=== PATIENT | male | born 1960 | race Caucasian/White ===

== ENCOUNTER 2018-01-29 21:05 | Emergency (ER) | payer MEDICAID ==
[~2018-01-29] VITALS: Ht 167.6 cm; Wt 64.0 kg
[2018-01-29] MEDS ORDERED: SODIUM CHLORIDE 0.9% 1,000 ML IV ONE ×2 (22:32→22:45)
[2018-01-29] MEDS ORDERED: METFORMIN HCL 500MG TABLET PO ONE (23:00)
[2018-01-30] VITALS: BP 117/76
[2018-01-30 02:04] LABS: BASOPHILS % 0.3 % (0.0-2.0); EOSINOPHILS % 2.4 % (0.0-5.0); HEMATOCRIT. 39.3 % (42.0-52.0); HEMOGLOBIN. 12.7 g/dL (14.0-18.0); LYMPHOCYTES % 22.3 % (20.0-50.0); MEAN CORPUSCULAR HEMOGLOBIN 29.6 pg (28.0-32.0); MEAN CORPUSCULAR VOLUME 91.9 fL (80.0-94.0); MEAN PLATELET VOLUME 12.4 fl (7.4-10.4); MONOCYTES % 6.7 % (2.0-8.0); NEUTROPHILS % 68.3 % (40.0-76.0); PLATELET 120 x1000/uL (130-400); RED BLOOD CELL COUNT 4.28 mill/uL (4.7-6.1); RED CELL DISTRIBUTION WIDTH 13.4 % (11.6-14.6)
[2018-01-30 02:28] LABS: CHLORIDE 112 mEq/L (98-107)
[2018-01-30 02:34] LABS: BETA HYDROXYBUTYRATE 0.3 mMol/L (0.0-0.3)
== END 2018-01-30 06:09 | disposition home or self-care (01) ==
LOC: ER 22:00
DX: E11.65 Type 2 diabetes mellitus with hyperglycemia (principal); F79 Unspecified intellectual disabilities; F20.9 Schizophrenia, unspecified
CPT/HCPCS: 36415; 80048; 82010; 82962; 85025; 96360; 96361; 99285; J7030; Z7610

== ENCOUNTER 2019-02-25 06:47 | Inpatient (IN) | payer MEDICAID ==
[~2019-02-25] VITALS: Ht 172.7 cm; Wt 61.2 kg
[2019-02-25 08:40] LABS: CLARITY URINE CLEAR (CLEAR); COLOR URINE YELLOW (YELLOW); KETONES URINE NEGATIVE (NEGATIVE); LEUKOCYTE ESTERASE URINE TRACE (NEGATIVE); NITRITE URINE POSITIVE (NEGATIVE); OCCULT BLOOD URINE NEGATIVE (NEGATIVE); PH URINE 6.5 (4.5-8.0); PROTEIN URINE NEGATIVE (NEGATIVE); SPECIFIC GRAVITY URINE 1.017 (1.005-1.030)
[2019-02-25 08:42] LABS: BASOPHILS % 0.3 % (0.0-2.0); EOSINOPHILS % 1.7 % (0.0-5.0); HEMATOCRIT. 36.4 % (42.0-52.0); HEMOGLOBIN. 12.1 g/dL (14.0-18.0); LYMPHOCYTES % 12.6 % (20.0-50.0); MEAN CORPUSCULAR HEMOGLOBIN 31.6 pg (28.0-32.0); MEAN CORPUSCULAR VOLUME 95.4 fL (80.0-94.0); MEAN PLATELET VOLUME 11.1 fl (7.4-10.4); MONOCYTES % 10.3 % (2.0-8.0); NEUTROPHILS % 75.1 % (40.0-76.0); PLATELET 125 x1000/uL (130-400); RED BLOOD CELL COUNT 3.81 mill/uL (4.7-6.1); RED CELL DISTRIBUTION WIDTH 12.9 % (11.6-14.6)
[2019-02-25 08:43] LABS: CHLORIDE 105 mEq/L (98-107)
[2019-02-25 08:45] LABS: PROTHROMBIN TIME 10.4 sec (9.6-11.0)
[2019-02-25] MEDS ORDERED: PIPERACILLIN/TAZ 3.375G PREMIX 50 ML IV ONE (09:00)
[2019-02-25] MEDS: DEXT 5%/LACTATED RINGERS 1,000 ML IV SCH ×2 (10:52→23:56)
[2019-02-25] MEDS ORDERED: DEXTROSE 50% WATER 50ML SYRINGE IV PRN (11:00)
[2019-02-25] MEDS ORDERED: MORPHINE SULFATE 2 MG/ML CPJ (NOT FOR IM USE) IV PRN (11:00)
[2019-02-25] MEDS ORDERED: ONDANSETRON HCL 4MG/2ML INJ IV PRN (11:00)
[2019-02-25] MEDS ORDERED: LORAZEPAM 2MG/ML CPJ IV PRN (11:00)
[2019-02-25] MEDS ORDERED: IPRATROPIUM/ALBUTEROL 0.5-3(2.5)MG/3ML NEB INH PRN (11:00)
[2019-02-25] MEDS ORDERED: ACETAMINOPHEN 650MG SUPP PR PRN (11:00)
[2019-02-25] MEDS ORDERED: PIPERACILLIN/TAZ 3.375G PREMIX 50 ML IV SCH (11:00)
[2019-02-25 12:00] VITALS: BP 149/88
[2019-02-25] MEDS: ENOXAPARIN 40MG/0.4ML SYR SUBCUT SCH (12:00)
[2019-02-25] MEDS: PANTOPRAZOLE SODIUM 40 MG/VIAL IV SCH (12:00)
[2019-02-25] MEDS: BLOOD SUGAR DIAGNOSTIC STRIP TEST SCH ×3 (12:20→21:00)
[2019-02-25] MEDS: INSULIN LISPRO 100 UNITS/ML SUBCUT SCH ×3 (12:50→21:00)
[2019-02-25 13:00] VITALS: BP 150/67
[2019-02-25] MEDS: PIPERACILLIN/TAZOBACTAM 3.375 G in DEXT 5% WATER 100 ML IV SCH ×2 (13:30→23:26)
[2019-02-25] MEDS ORDERED: DIPHENHYDRAMINE 50MG/ML VIAL ONE (13:53)
[2019-02-25] MEDS ORDERED: MIDAZOLAM HCL 2 MG/2 ML VIAL ONE (13:53)
[2019-02-25] MEDS ORDERED: FENTANYL CITRATE/PF 50MCG/ML 2ML VIAL ONE (13:53)
[2019-02-25] MEDS ORDERED: SIMETHICONE 40 MG/0.6 ML 30ML ONE (14:25)
[2019-02-25] MEDS ORDERED: HYDRALAZINE 20MG/ML VIAL IV PRN (15:45)
[2019-02-25] MEDS ORDERED: HYDRALAZINE 10 MG in SODIUM CHLORIDE 0.9% 49.5 ML IV PRN (16:15)
[2019-02-25] MEDS ORDERED: OMEP40CA34 MT (17:05)
[2019-02-25] MEDS ORDERED: DOCU-150 MT (17:05)
[2019-02-25] MEDS ORDERED: OXYB5TAB11 MT (17:05)
[2019-02-25] MEDS ORDERED: LEVO25TA7 MT (17:05)
[2019-02-25] MEDS ORDERED: DIPH50CA38 MT (17:05)
[2019-02-25] MEDS ORDERED: BENZ0.5T43 MT (17:05)
[2019-02-25] MEDS ORDERED: LITH300C3 MT (17:05)
[2019-02-25] MEDS ORDERED: TAMS-11 MT (17:05)
[2019-02-25] MEDS ORDERED: METF-414 MT (17:05)
[2019-02-25] MEDS ORDERED: CARB200C4 MT (17:05)
[2019-02-25] MEDS ORDERED: CHLO200T9 MT (17:05)
[2019-02-25] MEDS ORDERED: METF-416 MT (17:05)
[2019-02-25] MEDS ORDERED: RISP4TAB16 MT (17:05)
[2019-02-25] MEDS ORDERED: TRAZ-251 MT (17:05)
[2019-02-25 20:00] VITALS: BP 132/82
[2019-02-26] VITALS: BP 126/79
[2019-02-26] MEDS: HALOPERIDOL LACTATE 5MG/ML VIAL IM PRN ×2 (02:20→10:59)
[2019-02-26 04:00] VITALS: BP 117/75
[2019-02-26] MEDS: PIPERACILLIN/TAZOBACTAM 3.375 G in DEXT 5% WATER 100 ML IV SCH ×3 (05:18→21:18)
[2019-02-26] MEDS: BLOOD SUGAR DIAGNOSTIC STRIP TEST SCH ×4 (06:40→21:18)
[2019-02-26] MEDS: INSULIN LISPRO 100 UNITS/ML SUBCUT SCH ×4 (06:46→21:00)
[2019-02-26 08:00] VITALS: BP 153/95
[2019-02-26] MEDS: PANTOPRAZOLE SODIUM 40 MG/VIAL IV SCH ×2 (08:14→11:25)
[2019-02-26] MEDS: ENOXAPARIN 40MG/0.4ML SYR SUBCUT SCH (10:54)
[2019-02-26 12:00] VITALS: BP 135/84
[2019-02-26] MEDS: DEXT 5%/LACTATED RINGERS 1,000 ML IV SCH (13:48)
[2019-02-26] MEDS: POLYETHYLENE GLYCOL 3350 (17GM) 1 DOSE PACK PO SCH (15:12)
[2019-02-26] MEDS: DOCUSATE SODIUM 250MG CAPSULE PO SCH ×2 (15:13→23:45)
[2019-02-26] MEDS: BISACODYL 5MG TABLET PO SCH ×2 (15:13→23:45)
[2019-02-26 16:00] VITALS: BP 150/81
[2019-02-26 20:00] VITALS: BP 135/76
[2019-02-27] VITALS: BP 134/81
[2019-02-27] MEDS: DEXT 5%/LACTATED RINGERS 1,000 ML IV SCH (03:52)
[2019-02-27 04:00] VITALS: BP 130/84
[2019-02-27] MEDS: BLOOD SUGAR DIAGNOSTIC STRIP TEST SCH ×2 (06:19→12:54)
[2019-02-27] MEDS: PIPERACILLIN/TAZOBACTAM 3.375 G in DEXT 5% WATER 100 ML IV SCH ×2 (06:19→13:25)
[2019-02-27 08:00] VITALS: BP 141/85
[2019-02-27] MEDS: PANTOPRAZOLE SODIUM 40 MG/VIAL IV SCH ×2 (09:00→09:26)
[2019-02-27] MEDS: DOCUSATE SODIUM 250MG CAPSULE PO SCH (09:14)
[2019-02-27] MEDS: POLYETHYLENE GLYCOL 3350 (17GM) 1 DOSE PACK PO SCH (09:14)
[2019-02-27] MEDS: BISACODYL 5MG TABLET PO SCH (09:14)
[2019-02-27] MEDS: INSULIN LISPRO 100 UNITS/ML SUBCUT SCH ×2 (09:17→13:24)
[2019-02-27] MEDS: ENOXAPARIN 40MG/0.4ML SYR SUBCUT SCH (09:25)
[2019-02-27 10:40] VITALS: BP 135/81
[2019-02-27 12:00] VITALS: BP 145/88
[2019-02-27] MEDS ORDERED: FAMOTIDINE 20MG/2ML VIAL IV SCH (21:00)
[2019-02-28] MEDS ORDERED: BISACODYL 5MG TABLET PO SCH (09:00)
== END 2019-02-27 15:56 | disposition home or self-care (01) | DRG 720 ==
LOC: ER 06:47 → 6EST 09:18 → EDBEDREQTM 09:19 → EDBEDREQ 09:19 → ENRESERV 09:47 → 6EST 16:00
PROVIDERS: ADMIT Internal Medicine; ATTEND Internal Medicine
PROC: 0D9N8ZZ Drainage of Sigmoid Colon, Via Natural or Artificial Opening Endoscopic (ICD-10-PCS; principal; 2019-02-25)
DX: A41.9 Sepsis, unspecified organism (principal); K56.2 Volvulus; E44.1 Mild protein-calorie malnutrition; F20.9 Schizophrenia, unspecified; E11.9 Type 2 diabetes mellitus without complications; D63.8 Anemia in other chronic diseases classified elsewhere; F79 Unspecified intellectual disabilities; I10 Essential (primary) hypertension; N39.0 Urinary tract infection, site not specified; Z68.20 Body mass index [BMI] 20.0-20.9, adult
CPT/HCPCS: 36415; 71045; 74018; 74176; 82962; 83036; 93005; 93970; 96374; 99285; C9113; J0360; J1200; J1630; J1650; J1815; J2060; J2250; J2543; J3010; J7060